=== PATIENT | male | born 1980 | race Caucasian/White ===

== ENCOUNTER 2018-10-10 14:34 | Emergency (ER) | payer OTHER ==
[~2018-10-10] VITALS: Ht 180.3 cm; Wt 90.7 kg
== END 2018-10-10 16:49 | disposition home or self-care (01) ==
LOC: ER 14:34
DX: S61.012A Laceration without foreign body of left thumb without damage to nail, initial encounter (principal); S61.211A Laceration without foreign body of left index finger without damage to nail, initial encounter; F17.200 Nicotine dependence, unspecified, uncomplicated; Z23 Encounter for immunization; W45.8XXA Other foreign body or object entering through skin, initial encounter
CPT/HCPCS: 12001; 90471; 90714; 99282-25

== ENCOUNTER 2019-05-28 21:57 | Emergency (ER) | payer OTHER ==
[~2019-05-28] VITALS: Ht 177.8 cm; Wt 93.9 kg
== END 2019-05-29 00:01 | disposition home or self-care (01) ==
LOC: ER 21:57
DX: S93.401A Sprain of unspecified ligament of right ankle, initial encounter (principal); F17.200 Nicotine dependence, unspecified, uncomplicated; Z88.0 Allergy status to penicillin; W01.0XXA Fall on same level from slipping, tripping and stumbling without subsequent striking against object, initial encounter
CPT/HCPCS: 73630; 99283-25; A9270; A9270-GY